=== PATIENT | male | born 1990 | race American Indian/Alaskan Native ===

== ENCOUNTER 2021-03-18 22:59 | Emergency (ER) | payer BC ==
[2021-03-19 01:22] VITALS: BP 130/85
[2021-03-19] MEDS ORDERED: IPRATROPIUM/ALBUTEROL SULFATE 3 ML AMPUL.NEB IH ONE (01:23)
[2021-03-19] MEDS ORDERED: ALBUTEROL 2.5 MG/3 ML NEBU IH ONE (01:35)
[2021-03-19] MEDS ORDERED: IPRATROPIUM 0.02% NEBU 2.5 ML IH ONE (01:35)
[2021-03-19] MEDS ORDERED: MAGNESIUM SULFATE 2 GM/50 ML BAG IV ONE (01:36)
[2021-03-19] MEDS ORDERED: methylPREDNISolone Sod Succinate 125 MG/2 ML INJ IV ONE (01:36)
--- NOTE | 2021-03-19 02:06 | XRay Report ---
CHEST 1 VIEW INDICATION / CLINICAL INFORMATION: cough. FINDINGS: SUPPORT DEVICES: None. HEART / MEDIASTINUM: No significant abnormality. LUNGS / PLEURA: No significant pulmonary or pleural abnormality. No pneumothorax. ADDITIONAL FINDINGS: No significant additional findings. IMPRESSION: 1. No acute findings. Signer Name: Lionel Anthony MD Signed: 03/19/2021 2:02 AM Workstation Name: [id number]
[2021-03-19 02:14] LABS: Basophils # (Auto) 0.1 K/mm3 (0.0-0.1); Basophils % (Auto) 1.1 % (0.0-1.8); Eosinophils # (Auto) 0.7 K/mm3 (0.0-0.4); Hematocrit 50.3 % (35.5-45.6); Hemoglobin 16.8 gm/dl (11.8-15.2); Lymphocytes # (Auto) 1.2 K/mm3 (1.2-5.4); Lymphocytes % (Auto) 18.4 % (13.4-35.0); Mean Corpuscular HGB Conc 33 % (32-34); Mean Corpuscular Volume 88 fl (84-94); Monocytes # (Auto) 0.4 K/mm3 (0.0-0.8); Monocytes % (Auto) 5.7 % (0.0-7.3); Platelet Count 183 K/mm3 (140-440); Red Blood Count 5.71 M/mm3 (3.65-5.03); Red Cell Distribution Width 13.8 % (13.2-15.2)
[2021-03-19 02:28] LABS: Alanine Aminotransferase 13 units/L (7-56); Albumin 4.9 g/dL (3.9-5); BUN/Creatinine Ratio 10; Blood Urea Nitrogen 10 mg/dL (9-20); Calcium 9.7 mg/dL (8.4-10.2); Hemolysis Index 9
--- NOTE | 2021-03-19 03:06 | Emergency Department Report ---
ED Shortness of Breath HPI - General Chief Complaint: Adult Asthma Stated Complaint: ASTHMA,SOB Source: patient Mode of arrival: Ambulatory Limitations: No Limitations - History of Present Illness Initial Comments: Patient is a 30-year-old -Citizen Of [place] male with a history of asthma who presents to the ED with acute onset persistent shortness of breath, wheezing, chest tightness and persistent dry cough for the last 2 days despite using his albuterol nebulizer at home as well as inhalers with no relief. Patient states that in the last 12 hours he has used all his Symbicort inhaler with no relief of his shortness of breath. Patient also states that prior to arrival in the ED he had used albuterol nebulizer at home with no relief. Patient states that his symptoms at typical of his chronic asthma exacerbations. Patient denies dizziness, syncope, fever, chills, chest pain, abdominal pain, nausea and vomiting, headache, sore throat, neck pain, diaphoresis or palpitations. MD Complaint: shortness of breath, cough, "asthma attack" -: Sudden, days(s) (2) Severity: severe Pain Scale: 7 Quality: other (Chest tightness) Consistency: constant Improves With: bronchodilators Worsens With: nothing Known History Of: asthma Context: recent URI, allergen exposure Associated Symptoms: cough Treatments Prior to Arrival: bronchodilator - Related Data Home Oxygen Therapy: No Previous Rx's Medication Instructions Recorded Last Taken Type Albuterol Sulfate [Proventil Hfa] 1 - 2 puff IH Q4H PRN #1 hfa.aer.ad 03/19/21 Unknown Rx Benzonatate [Tessalon Perles] 100 mg PO Q8HR #30 capsule 03/19/21 Unknown Rx Budesonide/Formoterol Fumarate 1 - 2 puff IH Q6H PRN #1 hfa.aer.ad 03/19/21 Unknown Rx [Symbicort 160-4.5 Mcg Inhaler] Cetirizine HCl [Zyrtec 10mg tab] 10 mg PO DAILY #30 tablet 03/19/21 Unknown Rx Montelukast [Singulair] 10 mg PO QPM #30 tablet 03/19/21 Unknown Rx methylPREDNISolone [Medrol 4MG 4 mg PO DAILY #21 tab.ds.pk 03/19/21 Unknown Rx DOSEPAK (21 tabs)] Allergies Allergy/AdvReac Type Severity Reaction Status Date / Time aspirin Allergy Hives Verified 03/19/21 01:15 ED Review of Systems ROS: Stated complaint: ASTHMA,SOB Other details as noted in HPI Constitutional: denies: chills, fever Eyes: denies: eye pain, eye discharge, vision change ENT: congestion. denies: ear pain, throat pain Respiratory: cough, shortness of breath, wheezing Cardiovascular: denies: chest pain, palpitations Endocrine: no symptoms reported Gastrointestinal: denies: abdominal pain, nausea, vomiting, diarrhea Genitourinary: denies: urgency, dysuria Musculoskeletal: denies: back pain, joint swelling, arthralgia Skin: denies: rash, lesions Neurological: denies: headache, weakness, paresthesias Psychiatric: denies: anxiety, depression Hematological/Lymphatic: denies: easy bleeding, easy bruising ED Past Medical Hx - Past Medical History Previous Medical History?: Yes Hx Asthma: Yes - Surgical History Past Surgical History?: No - Social History Smoking Status: Never Smoker Substance Use Type: None - Medications Home Medications: Home Medications Medication Instructions Recorded Confirmed Last Taken Type Albuterol Sulfate [Proventil Hfa] 1 - 2 puff IH Q4H PRN #1 hfa.aer.ad 03/19/21 Unknown Rx Benzonatate [Tessalon Perles] 100 mg PO Q8HR #30 capsule 03/19/21 Unknown Rx Budesonide/Formoterol Fumarate 1 - 2 puff IH Q6H PRN #1 hfa.aer.ad 03/19/21 Unknown Rx [Symbicort 160-4.5 Mcg Inhaler] Cetirizine HCl [Zyrtec 10mg tab] 10 mg PO DAILY #30 tablet 03/19/21 Unknown Rx Montelukast [Singulair] 10 mg PO QPM #30 tablet 03/19/21 Unknown Rx methylPREDNISolone [Medrol 4MG 4 mg PO DAILY #21 tab.ds.pk 03/19/21 Unknown Rx DOSEPAK (21 tabs)] ED Physical Exam - General Limitations: No Limitations General appearance: alert, in no apparent distress - Head Head exam: Present: atraumatic, normocephalic, normal inspection - Eye Eye exam: Present: normal appearance, PERRL, EOMI Pupils: Present: normal accommodation - ENT ENT exam: Present: normal exam, normal orophraynx, mucous membranes moist, TM's normal bilaterally, normal external ear exam - Neck Neck exam: Present: normal inspection, full ROM - Respiratory Respiratory exam: Present: wheezes (Diffuse coarse wheezes throughout). Absent: normal lung sounds bilaterally, respiratory distress, rales, rhonchi, chest wall tenderness, accessory muscle use, decreased breath sounds, prolonged expiratory - Cardiovascular Cardiovascular Exam: Present: regular rate, normal rhythm, normal heart sounds. Absent: systolic murmur, diastolic murmur, rubs, gallop - GI/Abdominal GI/Abdominal exam: Present: soft, normal bowel sounds. Absent: tenderness, rebound, hyperactive bowel sounds, hypoactive bowel sounds - Extremities Exam Extremities exam: Present: normal inspection, full ROM, normal capillary refill - Back Exam Back exam: Present: normal inspection, full ROM. Absent: tenderness, CVA tenderness (R), CVA tenderness (L), muscle spasm, paraspinal tenderness, vertebral tenderness - Neurological Exam Neurological exam: Present: alert, oriented X3, CN II-XII intact, normal gait, reflexes normal - Psychiatric Psychiatric exam: Present: normal affect, normal mood - Skin Skin exam: Present: warm, dry, intact, normal color. Absent: rash ED Course Vital Signs 03/19/21 03/19/21 01:15 01:53 Temperature 98.1 F Pulse Rate 66 Pulse Rate [ 63 Throughout] Respiratory 18 Rate Respiratory 20 Rate [ Throughout] Blood Pressure 130/85 O2 Sat by Pulse 100 Oximetry ED Medical Decision Making - Lab Data Result diagrams: 03/19/21 01:41 03/19/21 01:41 - Radiology Data Radiology results: report reviewed, image reviewed [facility] [address] [place] [address] XRay Report Signed Patient: JOSE RAFAEL ELIAS MR# : [id number] : 1990 Acct:[id number] Age/Sex: 30 / M ADM Date: 03/18/21 Loc: ED Attending Dr: Ordering Physician: IMAN RUTHERFORD MD Date of Service: 03/19/21 Procedure(s): XR chest 1V ap Accession Number(s): [id number] cc: IMAN RUTHERFORD MD Fluoro Time In Minutes: CHEST 1 VIEW INDICATION / CLINICAL INFORMATION: cough. FINDINGS: SUPPORT DEVICES: None. HEART / MEDIASTINUM: No significant abnormality. LUNGS / PLEURA: No significant pulmonary or pleural abnormality. No pneumothorax. ADDITIONAL FINDINGS: No significant additional findings. IMPRESSION: 1. No acute findings. Signer Name: Lionel Anthony MD Signed: 03/19/2021 2:02 AM Workstation Name: [id number] Transcribed By: Dictated By: Lionel Anthony MD Electronically Authenticated By: Lionel Anthony MD Signed Date/Time: 03/19/21201 DD/ 1 TD/TT: - Medical Decision Making This is a 30-year-old -Citizen Of [place] male with a history of asthma who presents to the ED with acute onset persistent shortness of breath, wheezing, chest tightness and persistent dry cough for the last 2 days despite using his albuterol nebulizer at home as well as inhalers with no relief. Patient states that in the last 12 hours he has used all his Symbicort inhaler with no relief of his shortness of breath. Patient also states that prior to arrival in the ED he had used albuterol nebulizer at home with no relief. Patient states that his symptoms at typical of his chronic asthma exacerbations. In the ED, patient is alert and oriented x3 and is not in any distress. Physical exam reveals diffuse coarse wheezes throughout. Patient's vital signs are stable with oxygen saturation of 100% in room air. Patient was treated with DuoNeb in the ED, and also received Solu-Medrol 125 mg IV x1 and magnesium sulfate 2 g IV x1. Chest x-ray showed no acute cardiopulmonary abnormalities or pneumonitis. On reevaluation, patient wheezing resolved as well as shortness of breath. Patient's oxygen saturation is 100% in room air. Patient was discharged home on medications including steroids as well as refill of his Symbicort inhaler as well as cough medications. Patient was advised to follow-up with his primary care physician in 3 to 5 days for reevaluation or return to the ED immediately if symptoms get worse. - Differential Diagnosis Asthma; bronchitis; URI; pneumonia; COVID-19 Critical care attestation.: If time is entered above; I have spent that time in minutes in the direct care of this critically ill patient, excluding procedure time. ED Disposition Clinical Impression: Acute bronchitis with asthma with acute exacerbation, Shortness of breath Disposition: TO HOME OR SELFCARE Is pt being admited?: No Does the pt Need Aspirin: No Condition: Stable Instructions: Acute Bronchitis (ED), Shortness of Breath, Adult, [id number], Cough, Adult, [id number], Acute Bronchitis, Adult, [id number], Asthma, Adult, [id number] Additional Instructions: All lab test results were reviewed and are all nonactionable. Chest x-ray shows no acute cardiopulmonary abnormalities or pneumonitis. Therefore take medications with food, drink plenty of fluids and follow-up with your primary care physician in 3 to 5 days for reevaluation. Return to the ED immediately if symptoms get worse. Prescriptions: methylPREDNISolone [Medrol 4MG DOSEPAK (21 tabs)] 4 mg PO DAILY #21 tab.ds.pk Albuterol Sulfate [Proventil Hfa] 1 - 2 puff IH Q4H PRN #1 hfa.aer.ad PRN Reason: Wheezing Montelukast [Singulair] 10 mg PO QPM #30 tablet Budesonide/Formoterol Fumarate [Symbicort 160-4.5 Mcg Inhaler] 1 - 2 puff IH Q6H PRN #1 hfa.aer.ad PRN Reason: Shortness Of Breath Benzonatate [Tessalon Perles] 100 mg PO Q8HR #30 capsule Cetirizine HCl [Zyrtec 10mg tab] 10 mg PO DAILY #30 tablet Referrals: [facility] [Provider Group] - 3-5 Days Time of Disposition: 03:15 Print Language: FRENCH
== END 2021-03-19 03:35 | disposition home or self-care (01) ==
LOC: ED 22:59
DX: J45.901 Unspecified asthma with (acute) exacerbation (principal); R06.02 Shortness of breath; Z88.8 Allergy status to other drugs, medicaments and biological substances; Z79.899 Other long term (current) drug therapy
CPT/HCPCS: 36415; 71045; 80053; 85025; 94640; 96365; 96375; 99284; J2930; J3475; 94644